=== PATIENT | female | born 1985 | race Caucasian/White ===

== ENCOUNTER 2017-06-22 20:41 | Emergency (ER) | payer BC ==
[2017-06-22 21:09] VITALS: TEMP 97.8
--- NOTE | 2017-06-22 22:21 | ED PDOC ---
HPI: Female Pain Time Seen by Provider: 06/22/17 21:34 Chief Complaint (Nursing): Female Genitourinary Chief Complaint (Provider): vaginal bleeding History Per: Patient History/Exam Limitations: no limitations Onset/Duration Of Symptoms: Days (13) Current Symptoms Are (Timing): Still Present Additional Complaint(s): 31 y/o female presents for evaluation of heavy vaginal bleeding x 13 days. Patient states she finished chemotherapy for breast cancer in 01/2017, and that her last period was 11/2016. Patient was told by her Oncologist that this is normal and to wait it out, but patient is concerned that it has not yet stopped. Denies headache, dizziness, nausea/vomiting, chest pain, shortness of breath, palpitations, abdominal/pelvic pain Past Medical History Reviewed: Historical Data, Nursing Documentation, Vital Signs Vital Signs: Last Vital Signs Temp 97.8 F 06/22/17 21:03 Pulse 74 06/22/17 21:03 Resp 18 06/22/17 21:03 BP 114/74 06/22/17 21:03 Pulse Ox 98 06/22/17 21:03 - Medical History PMH: Anemia, Hypothyroidism, Malignancy - Family History Family History: States: No Known Family Hx - Allergies Allergies/Adverse Reactions: Allergies Allergy/AdvReac Type Severity Reaction Status Date / Time No Known Allergies Allergy Verified 06/22/17 21:03 Review of Systems ROS Statement: Except As Marked, All Systems Reviewed And Found Negative Genitourinary Female: Positive for: Vaginal Bleeding Physical Exam - Reviewed Nursing Documentation Reviewed: Yes Vital Signs Reviewed: Yes - Physical Exam Appears: Positive for: Well, Non-toxic, No Acute Distress Head Exam: Positive for: ATRAUMATIC, NORMAL INSPECTION, NORMOCEPHALIC Skin: Positive for: Normal Color Eye Exam: Positive for: Normal appearance ENT: Positive for: Normal ENT Inspection Cardiovascular/Chest: Positive for: Regular Rate, Rhythm Respiratory: Positive for: Normal Breath Sounds Gastrointestinal/Abdominal: Positive for: Normal Exam Pelvic Exam: Positive for: External Exam Normal, No Cerv. Motion Tender, No Masses, Active Bleeding Back: Positive for: Normal Inspection Extremity: Positive for: Normal ROM Neurologic/Psych: Positive for: Alert, Oriented - Laboratory Results Result Diagrams: 06/22/17 23:00 06/22/17 23:00 - ECG O2 Sat by Pulse Oximetry: 98 - Progress ED Course And Treament: labs, urine, pelvic u/s EXAM: US Pelvis Complete, Transabdominal CLINICAL HISTORY: 31 years old, female; Signs and symptoms; Menstruation abnormalities; Irregular menstruation; Additional info: Heavy vaginal bleeding, chemo finished 01/2017 TECHNIQUE: Real-time transabdominal pelvic ultrasound (complete) with image documentation. COMPARISON: No relevant prior studies available. FINDINGS: Uterus/cervix: Unremarkable measuring 8.4 x 3.8 x 4.4 cm. The endometrial stripe measures 1.2 cm. No myometrial mass. Right ovary: The right ovary measures 2.5 x 2.1 x 2.6 cm. There is a 1.9 x 1.3 x 1.4 cm dominant follicle. No mass. Normal blood flow. Left ovary: The left ovary measures 1.7 x 1.8 x 2.0 cm and is unremarkable. No mass. Normal blood flow. Free fluid: No free fluid. Bladder: Unremarkable as visualized. Wall is normal thickness for degree of distention. IMPRESSION: Unremarkable pelvic ultrasound. Patient educated on findings, discharged with instructions to follow up with [facility] in 2-3 days. Advised iron supplement Return precautions given. Disposition - Clinical Impression Clinical Impression: Vaginal bleeding, Anemia - Patient ED Disposition Is Patient to be Admitted: No Counseled Patient/Family Regarding: Studies Performed, Diagnosis, Need For Followup - Disposition Disposition: Routine/Home Disposition Time: 00:17 Condition: STABLE Instructions: Heavy Periods
[2017-06-22 23:08] LABS: BASO # 0.1 K/uL (0.0-0.2); EOS # 0.3 K/uL (0.0-0.7); EOS % 5.2 % (0.0-4.0); HEMOGLOBIN 9.4 g/dL (12.0-16.0); LYMPH # 1.6 K/uL (1.0-4.3); LYMPH % 27.9 % (20.0-40.0); MEAN CELL VOLUME 78.4 fl (81.0-99.0); MEAN CORPUSCULAR HEMOGLOBIN 25.2 pg (27.0-31.0); MEAN CORPUSCULAR HGB CONC 32.1 g/dL (33.0-37.0); MEAN PLATELET VOLUME 8.7 fl (7.2-11.7); MONO # 0.4 K/uL (0.0-0.8); MONO % 7.2 % (0.0-10.0); NEUT # 3.4 K/uL (1.8-7.0); NEUT % 58.7 % (50.0-75.0); RBC 3.75 Mil/uL (3.80-5.20); RED CELL DISTRIBUTION WIDTH 14.4 % (11.5-14.5); WHITE BLOOD COUNT 5.8 K/uL (4.8-10.8)
[2017-06-22 23:17] LABS: ALB/GLOB RATIO 1.3 (1.0-2.1); ALBUMIN 3.8 g/dL (3.5-5.0); ALT/SGPT 42 U/L (9-52); AST/SGOT 25 U/L (14-36); BLOOD UREA NITROGEN 11 mg/dl (7-17); CALCIUM 8.9 mg/dL (8.4-10.2); GFR AFRICAN-AMERICAN > 60; GFR NON-AFRICAN AMERICAN > 60
--- NOTE | 2017-06-23 00:08 | US ---
EXAM: US Pelvis Complete, Transabdominal CLINICAL HISTORY: 31 years old, female; Signs and symptoms; Menstruation abnormalities; Irregular menstruation; Additional info: Heavy vaginal bleeding, chemo finished 01/2017 TECHNIQUE: Real-time transabdominal pelvic ultrasound (complete) with image documentation. COMPARISON: No relevant prior studies available. FINDINGS: Uterus/cervix: Unremarkable measuring 8.4 x 3.8 x 4.4 cm. The endometrial stripe measures 1.2 cm. No myometrial mass. Right ovary: The right ovary measures 2.5 x 2.1 x 2.6 cm. There is a 1.9 x 1.3 x 1.4 cm dominant follicle. No mass. Normal blood flow. Left ovary: The left ovary measures 1.7 x 1.8 x 2.0 cm and is unremarkable. No mass. Normal blood flow. Free fluid: No free fluid. Bladder: Unremarkable as visualized. Wall is normal thickness for degree of distention. IMPRESSION: Unremarkable pelvic ultrasound.
[2017-06-23 01:23] VITALS: BP 102/74; PULSE 72; RESP 14; O2SAT 100
== END 2017-06-23 01:25 | disposition home or self-care (01) ==
LOC: H.ER 20:41
DX: N93.9 Abnormal uterine and vaginal bleeding, unspecified (principal); D64.9 Anemia, unspecified; E03.9 Hypothyroidism, unspecified; Z85.3 Personal history of malignant neoplasm of breast